=== PATIENT | male | born 1985 ===

== ENCOUNTER → 2021-12-03 | Outpatient (CLI) | payer SELFPAY ==
[~2021-12-03] MED LIST: CEPH500 PO; HYDACE5 PO; IBUP800 PO; METO50ER; NAPR500 PO; PARO10 PO; RXLORA1 PO
== END | disposition home or self-care (01) ==
LOC: LAB SHORT 13:19 → PLD 13:19
DX: D23.71 Other benign neoplasm of skin of right lower limb, including hip (principal); L98.9 Disorder of the skin and subcutaneous tissue, unspecified
CPT/HCPCS: 88305; 88342

== ENCOUNTER 2025-06-14 00:24 | Emergency (ER) | payer OTHER ==
[~2025-06-14] VITALS: Ht 185.4 cm; Wt 115.7 kg
[2025-06-14] MEDS ORDERED: TRAZ100 PO (06:26)
[2025-06-14] MEDS ORDERED: AMOCLA875 PO (06:26)
[2025-06-14 06:30] VITALS: BP 132/84
== END 2025-06-14 06:41 | disposition home or self-care (01) ==
LOC: ER 00:24
DX: K04.7 Periapical abscess without sinus (principal); F41.9 Anxiety disorder, unspecified; G47.00 Insomnia, unspecified
CPT/HCPCS: 99282; A9270